=== PATIENT | female | born 1970 ===

== ENCOUNTER 2024-10-02 06:00 | Outpatient (CLI) | payer OTHER ==
[~2024-10-02] VITALS: Ht 162.6 cm; Wt 54.4 kg
[2024-10-02 12:08] LABS: COVID-19 AG NEGATIVE (NEGATIVE)
[2024-10-02] MEDS ORDERED: ATORVASTATIN CA10 MG PO (12:40)
[2024-10-02] MEDS ORDERED: LEVO-T75 MCG PO (12:40)
[2024-10-02 12:43] VITALS: BP 22/82
[2024-10-02 13:03] LABS: RH POSITIVE
== END 2024-10-02 06:01 | disposition home or self-care (01) ==
LOC: RAD 06:00 → EDSTATUS 10-08 11:15 → OB/GYN 10-08 11:15
PROVIDERS: ATTEND Obstetrics & Gynecology Gynecologic Oncology
DX: N85.02 Endometrial intraepithelial neoplasia [EIN] (principal); Z01.818 Encounter for other preprocedural examination; Z20.822 Contact with and (suspected) exposure to COVID-19; R79.89 Other specified abnormal findings of blood chemistry; R97.8 Other abnormal tumor markers; D64.9 Anemia, unspecified; I10 Essential (primary) hypertension

== ENCOUNTER 2025-02-12 11:42 | Inpatient (IN) | payer OTHER ==
[~2025-02-12] VITALS: Ht 162.6 cm; Wt 54.4 kg
[2025-02-12 11:37] VITALS: BP 132/83
[~2025-02-12 11:42] MED LIST: ATORVASTATIN CA10 MG PO; EZALLOR SPRINKL20 MG PO; LEVO-T75 MCG PO
[2025-02-12 12:02] LABS: COVID-19 AG NEGATIVE (NEGATIVE)
[2025-02-12 13:25] LABS: RH POSITIVE
[2025-02-18] MEDS ORDERED: METRONIDAZOLE/SODIUM CHLORIDE 500 MG/100 ML PIGGYBACK IV ONE (15:23)
[2025-02-18] MEDS ORDERED: CEFAZOLIN SODIUM 1,000 MG VIAL ONE (15:23)
[2025-02-18] MEDS ORDERED: POVIDONE-IODINE 118 ML BOTT TOP ONE (19:10)
[2025-02-18] MEDS ORDERED: THROMBIN,HU/FIBRINOGEN/CALCIUM 4 ML SYRINGE TOP ONE ×2 (20:15→21:13)
[2025-02-18] MEDS ORDERED: VISTASEAL DUAL APPICATOR 1 EACH APPL TOP ONE ×2 (20:15→20:31)
[2025-02-18] MEDS ORDERED: MORPHINE SULFATE 4 MG/ML CARTRIDGE IV PRN (21:15)
[2025-02-18] MEDS ORDERED: KETOROLAC TROMETHAMINE 30 MG VIAL IV ONE ×3 (21:15→22:45)
[2025-02-18] MEDS ORDERED: RINGERS SOLUTION,LACTATED 1,000 ML IV SCH (21:15)
[2025-02-18] MEDS ORDERED: SUGAMMADEX SODIUM 200 MG/2 ML VIAL IV ONE (21:40)
[2025-02-18] MEDS ORDERED: MORPHINE SULFATE 4 MG/ML VIAL IV ONE (22:30)
[2025-02-18] MEDS ORDERED: KETOROLAC TROMETHAMINE 30 MG VIAL ONE (22:35)
[2025-02-18 23:16] LABS: BASO % 0.3 % (0.1-1.2); EOS # 0.06 (0.04-0.54); EOS % 0.4 % (0.7-7.0); LYMPH # 1.59 (1.18-3.74); LYMPH % 10.2 % (19.3-53.1); MEAN PLATELET VOLUME 11.70 fl (9.4-12.4); MONO # 0.59 (0.24-0.82); MONO % 3.8 % (4.7-12.5); NEUT # 13.25 (1.56-6.13); NEUT % 84.9 % (34.0-71.1); RED CELL DISTRIBUTION WIDTH 13.4 % (11.6-14.4)
[2025-02-18 23:29] LABS: BUN CREA RATIO 30.0 (7.0-25.0); CREATININE SERUM 0.66 mg/dL (0.55-1.02); GFR 94.04; GLUCOSE FASTING 132.0 mg/dL (65-100); OSMOLALITY SERUM 288.0 MOSM/KG (275-295)
[2025-02-18] MEDS ORDERED: METOCLOPRAMIDE HCL 5 MG/ML VIAL ONE (23:59)
[2025-02-19] MEDS ORDERED: KETOROLAC TROMETHAMINE 30 MG VIAL ONE
[2025-02-19] MEDS ORDERED: KETOROLAC TROMETHAMINE 30 MG VIAL IM SCH
[2025-02-19] MEDS ORDERED: METOCLOPRAMIDE HCL 5 MG/ML VIAL IV SCH (01:00)
[2025-02-19] MEDS ORDERED: CEFAZOLIN SODIUM 1,000 MG VIAL IV SCH (01:00)
[2025-02-19 03:33] VITALS: BP 141/89
[2025-02-19 03:54] LABS: BASO % 0.2 % (0.1-1.2); EOS # 0.00 (0.04-0.54); EOS % 0.0 % (0.7-7.0); LYMPH # 0.50 (1.18-3.74); LYMPH % 4.8 % (19.3-53.1); MEAN PLATELET VOLUME 11.90 fl (9.4-12.4); MONO # 0.54 (0.24-0.82); MONO % 5.2 % (4.7-12.5); NEUT # 9.27 (1.56-6.13); NEUT % 89.4 % (34.0-71.1); RED CELL DISTRIBUTION WIDTH 13.2 % (11.6-14.4)
[2025-02-19 04:13] LABS: BUN CREA RATIO 35.0 (7.0-25.0); GFR 123.83; GLUCOSE FASTING 97.0 mg/dL (65-100); OSMOLALITY SERUM 283.0 MOSM/KG (275-295)
[2025-02-19 04:16] LABS: CREATININE SERUM 0.52 mg/dL (0.55-1.02)
[2025-02-19] MEDS ORDERED: LEVOTHYROXINE SODIUM 75 MCG TABLET PO SCH (06:00)
[2025-02-19 08:55] VITALS: BP 113/67
[2025-02-19] MEDS ORDERED: FAMOTIDINE/PF 20 MG/2 ML VIAL IV PUSH SCH (09:00)
[2025-02-19] MEDS ORDERED: ENOXAPARIN SODIUM 40 MG/0.4 ML SYRINGE SUBCUTANEO SCH (09:00)
[2025-02-19] MEDS ORDERED: DOCUSATE SODIUM 100MG CAP PO SCH (09:00)
[2025-02-19] MEDS ORDERED: SIMETHICONE 125 MG CAPSULE PO SCH (09:00)
[2025-02-19] MEDS ORDERED: ROSUVASTATIN CALCIUM 20 MG TABLET PO SCH (09:00)
[2025-02-19] MEDS ORDERED: GABAPENTIN 300 MG CAPSULE PO SCH (21:00)
== END 2025-02-19 14:32 | disposition home or self-care (01) | DRG 743 ==
LOC: OB/GYN 02-18 10:15 → O/R 02-18 13:46 → OB/GYN 02-18 13:46 → SURG 02-18 22:38 → OB/GYN 02-18 23:49
PROVIDERS: Obstetrics & Gynecology; ADMIT Obstetrics & Gynecology Gynecologic Oncology; ATTEND Obstetrics & Gynecology Gynecologic Oncology
PROC: 0UT74ZZ Resection of Bilateral Fallopian Tubes, Percutaneous Endoscopic Approach (ICD-10-PCS; 2025-02-18)
PROC: 0UT24ZZ Resection of Bilateral Ovaries, Percutaneous Endoscopic Approach (ICD-10-PCS; 2025-02-18)
PROC: 07BC4ZZ Excision of Pelvis Lymphatic, Percutaneous Endoscopic Approach (ICD-10-PCS; 2025-02-18)
PROC: 0UT94ZZ Resection of Uterus, Percutaneous Endoscopic Approach (ICD-10-PCS; principal; 2025-02-18 10:15)
DX: D25.1 Intramural leiomyoma of uterus (principal); D25.2 Subserosal leiomyoma of uterus; D25.0 Submucous leiomyoma of uterus; N72 Inflammatory disease of cervix uteri; N80.03 Adenomyosis of the uterus; N80.399 Endometriosis of the pelvic peritoneum, other specified sites, unspecified depth; N80.103 Endometriosis of bilateral ovaries, unspecified depth